=== PATIENT | female | born 1980 | race American Indian/Alaskan Native ===

== ENCOUNTER 2020-11-15 15:49 | Emergency (ER) | payer SELFPAY ==
[2020-11-15] MEDS ORDERED: SODIUM CHLORIDE 0.9% 1000 ML 1,000 ML IV ONE (16:44)
[2020-11-15] MEDS ORDERED: ONDANSETRON 4 MG/2 ML INJ IV ONE (16:44)
[2020-11-15] MEDS ORDERED: KETOROLAC 30 MG/1 ML INJ IV ONE (16:44)
[2020-11-15] MEDS ORDERED: MORPHINE 2 MG/1 ML INJ IV ONE (16:45)
[2020-11-15] MEDS ORDERED: ACETAMINOPHEN 325 MG TAB PO ONE (16:48)
--- NOTE | 2020-11-15 16:48 | Emergency Department Report ---
ED Abdominal Pain HPI - General Chief Complaint: Abdominal Pain Stated Complaint: ABD PAINS Time Seen by Provider: 11/15/20 16:29 Source: patient Mode of arrival: Ambulatory Limitations: No Limitations - History of Present Illness Initial Comments: 40-year-old female with a past medical history of hypertension presents to the ER today with complaints of right lower quadrant pain patient states that the pain started 4 days ago. She describes as a sharp pain that radiates sometimes into the epigastric area. She reports nausea but no vomiting. She states that her bowel movements have been softer than normal and she is been going more frequently but denies any diarrhea, melena or hematochezia. She denies any UTI symptoms or any abnormal vaginal symptoms. She states that her last menstrual cycle was August 31, 2020. She has not taken a home test. She states that when she was a baby had a bowel obstruction which required surgical repair but since then has not had any other abdominal surgeries. MD Complaint: abdominal pain -: days(s) (4) - Related Data Previous Rx's Medication Instructions Recorded Last Taken Type Acetaminophen/Codeine [Tylenol 1 tab PO Q4HR PRN #12 tablet 11/15/20 Unknown Rx /Codeine # 3 tab] Ibuprofen [Motrin] 600 mg PO Q8H PRN #30 tablet 11/15/20 Unknown Rx cephALEXin [Keflex] 500 mg PO Q6HR #40 capsule 11/15/20 Unknown Rx Allergies Allergy/AdvReac Type Severity Reaction Status Date / Time No Known Allergies Allergy Unverified 11/15/20 16:07 ED Review of Systems ROS: Stated complaint: ABD PAINS Other details as noted in HPI Comment: All other systems reviewed and negative Constitutional: denies: chills, fever Respiratory: denies: cough, shortness of breath, wheezing Cardiovascular: denies: chest pain, palpitations Gastrointestinal: abdominal pain, nausea. denies: diarrhea, constipation, hematemesis, melena, hematochezia Genitourinary: abnormal menses. denies: urgency, dysuria, frequency, hematuria, discharge Musculoskeletal: denies: back pain, joint swelling, arthralgia Skin: denies: rash, lesions Neurological: denies: headache, weakness, numbness, paresthesias, confusion Psychiatric: denies: anxiety, depression Hematological/Lymphatic: denies: easy bleeding, easy bruising ED Past Medical Hx - Past Medical History Hx Hypertension: Yes Additional medical history: OVARIAN CYST - Medications Home Medications: Home Medications Medication Instructions Recorded Confirmed Last Taken Type Acetaminophen/Codeine [Tylenol 1 tab PO Q4HR PRN #12 tablet 11/15/20 Unknown Rx /Codeine # 3 tab] Ibuprofen [Motrin] 600 mg PO Q8H PRN #30 tablet 11/15/20 Unknown Rx cephALEXin [Keflex] 500 mg PO Q6HR #40 capsule 11/15/20 Unknown Rx ED Physical Exam - General Limitations: No Limitations General appearance: alert, in no apparent distress, obese - Head Head exam: Present: atraumatic, normocephalic, normal inspection - Respiratory Respiratory exam: Present: normal lung sounds bilaterally. Absent: respiratory distress - Cardiovascular Cardiovascular Exam: Present: regular rate, normal rhythm, normal heart sounds - GI/Abdominal GI/Abdominal exam: Present: soft, tenderness (RLQ). Absent: distended, guarding, rebound - Back Exam Back exam: Present: normal inspection - Neurological Exam Neurological exam: Present: alert, oriented X3, CN II-XII intact, normal gait - Psychiatric Psychiatric exam: Present: normal affect, normal mood - Skin Skin exam: Present: intact ED Course Vital Signs 11/15/20 11/15/20 11/15/20 16:06 17:05 17:08 Temperature 100.3 F H 99 F Pulse Rate 103 H 95 H Respiratory 20 18 18 Rate Blood Pressure 196/114 Blood Pressure 150/107 [Left] O2 Sat by Pulse 97 98 99 Oximetry 11/15/20 18:47 Temperature Pulse Rate 92 H Respiratory 18 Rate Blood Pressure Blood Pressure 169/95 [Left] O2 Sat by Pulse 99 Oximetry ED Medical Decision Making - Lab Data Result diagrams: 11/15/20 16:29 11/15/20 16:29 - Radiology Data Radiology results: report reviewed Patient: ROSITA KESSLER MR#: [id number] : 1980 Acct:[id number] Age/Sex: 40 / F ADM Date: 11/15/20 Loc: ED Attending Dr: Ordering Physician: DARIEN DIETZ Date of Service: 11/15/20 Procedure(s): CT abdomen pelvis w con Accession Number(s): [id number] cc: DARIEN J. J LUIS CT ABDOMEN AND PELVIS WITH CONTRAST INDICATION / CLINICAL INFORMATION: RLQ abd pain. TECHNIQUE: Axial CT images were obtained through the abdomen and pelvis after IV contrast. All CT scans at this location are performed using CT dose reduction for ALARA by means of automated e xposure control. COMPARISON: None available. FINDINGS: LOWER CHEST: No significant abnormality. LIVER: Suspect mild hepatomegaly with mild hepatic steatosis. GALLBLADDER/BILIARY TREE: No significant abnormality PANCREAS: No significant abnormality SPLEEN: No significant abnormality ADRENALS: No significant abnormality KIDNEYS / URETER: No significant abnormality URINARY BLADDER: Bladder is partially decompressed, though grossly unremarkable. REPRODUCTIVE ORGANS: There is asymmetric enlargement of the left ovary with 4.9 cm cystic structure. There is deviation of the uterus to the right. Moderate adjacent zuleyka nd appearing free fluid is present. STOMACH / SMALL BOWEL: Moderately sized periumbilical hernia contains nonobstructed small bowel. No evidence of bowel obstruction or inflammation. COLON: The colon is unremarkable. The appendix is not discretely seen, though there are no secondary signs of appendicitis. LYMPH NODES: No significant adenopathy. VASCULATURE: No significant abnormality. OTHER: No free air, free fluid, or focal fluid collection is identified. There are postoperative changes in the abdomen. SKELETAL SYSTEM: No acute osseous findings. IMPRESSION: 1. Asymmetric enlargement of the left ovary with 4.9 cm cystic structure. There is also moderate adjacent free fluid in the pelvis. Findings may reflect ruptured ovarian cyst, though pelvic ultrasound is recommended for further evaluation, as similar findings may also be seen with ovarian torsion. 2. Moderately sized periumbilical hernia contains nonobstructed small bowel. No bowel obstruction or inflammation. 3. Other chronic, incidental findings as above. Signer Name: Josh Gramajo MD Signed: 11/15/2020 6:31 PM Workstation Name: [id number] - Medical Decision Making 40-year-old female with a past medical history of hypertension presents to the ER today with complaints of right lower quadrant pain patient states that the pain started 4 days ago. She describes as a sharp pain that radiates sometimes into the epigastric area. She reports nausea but no vomiting. She states that her bowel movements have been softer than normal and she is been going more frequently but denies any diarrhea, melena or hematochezia. She denies any UTI symptoms or any abnormal vaginal symptoms. She states that her last menstrual cycle was August 31, 2020. She has not taken a home test. She states that when she was a baby had a bowel obstruction which required surgical repair but since then has not had any other abdominal surgeries. 2101: Patient currently resting comfortably, and is currently talking on her phone. She does not appear to be in any acute distress. Her vital signs improved during stay. She is not toxic or ill-appearing and appears well- hydrated. She is neurologically intact with a normal gait. Labs, CT and ultrasound reviewed. Urinalysis concerning for UTI, remaining labs unremarkable. CT report showed 1. Asymmetric enlargement of the left ovary with 4.9 cm cystic structure. There is also moderate adjacent free fluid in the pelvis. Findings may reflect ruptured ovarian cyst, though pelvic ultrasound is recommended for further evaluation, as similar findings may also be seen with ovarian torsion. 2. Moderately sized periumbilical hernia contains nonobstructed small bowel. No bowel obstruction or inflammation. CT otherwise shows no other acute findings. Pelvic ultrasound showed a 6.1 left ovarian cyst, likely hemorrhagic in nature but no torsion and radiologist recommended 6-week follow-up to ensure resolution. Discussed labs and imaging results with patient. At this time there is no indication for admission or any emergent specialist consult. Discussed treatment plan with patient. Informed her she will need to follow-up with primary care doctor and [facility]. Patient exp ressed understanding of instructions and agree with plan. Patient stable at time of discharge. Critical care attestation.: If time is entered above; I have spent that time in minutes in the direct care of this critically ill patient, excluding procedure time. ED Disposition Clinical Impression: UTI (urinary tract infection), Ovarian cyst, left, Hemorrhagic cyst Disposition: TO HOME OR SELFCARE Is pt being admited?: No Does the pt Need Aspirin: No Condition: Stable Instructions: Urinary Tract Infection, Adult, Ovarian Cyst, Abdominal Pain (ED) Additional Instructions: Take the antibiotic and the pain medication as prescribed. Follow up with OBGYN listed on your discharge instructions. Return to ED if symptoms changes or worsens in anyway. Prescriptions: cephALEXin [Keflex] 500 mg PO Q6HR #40 capsule Ibuprofen [Motrin] 600 mg PO Q8H PRN #30 tablet PRN Reason: Pain Acetaminophen/Codeine [Tylenol /Codeine # 3 tab] 1 tab PO Q4HR PRN #12 tablet PRN Reason: Pain Referrals: PRIMARY CAREMD [Primary Care Provider] - 3-5 Days CHRISTIANO CAMPUZANO MD [Staff Physician] - 3-5 Days [facility] [Provider Group] - 3-5 Days Forms: Work/School Release Form(ED) Time of Disposition: 20:53
[2020-11-15 17:15] LABS: Alanine Aminotransferase 14 units/L (7-56); Albumin 3.7 g/dL (3.9-5); BUN/Creatinine Ratio 18; Basophils % (Auto) 0.3 % (0.0-1.8); Blood Urea Nitrogen 14 mg/dL (7-17); Calcium 8.5 mg/dL (8.4-10.2); Eosinophils % (Auto) 0.4 % (0.0-4.3); Hematocrit 38.4 % (30.3-42.9); Hemoglobin 12.5 gm/dl (10.1-14.3); Hemolysis Index 11; Lymphocytes # (Auto) 0.4 K/mm3 (1.2-5.4); Lymphocytes % (Auto) 9.7 % (13.4-35.0); Mean Corpuscular HGB Conc 33 % (30-34); Mean Corpuscular Volume 85 fl (79-97); Monocytes # (Auto) 0.3 K/mm3 (0.0-0.8); Monocytes % (Auto) 7.8 % (0.0-7.3); Platelet Count 241 K/mm3 (140-440); Red Blood Count 4.54 M/mm3 (3.65-5.03); Red Cell Distribution Width 16.1 % (13.2-15.2)
[2020-11-15] MEDS ORDERED: KETOROLAC 30 MG/1 ML INJ ONE (17:28)
[2020-11-15 18:04] LABS: Bacteria,Urine 4+ /HPF (Negative); Bilirubin,Urine NEG (Negative); Blood,Urine NEG (Negative); Color,Urine Yellow (Yellow); Hyaline Casts,Urine 1 /LPF; Mucus,Urine 2+ /HPF; Protein,Urine <15 mg/dL mg/dL (Negative); Urobilinogen,Urine < 2.0 mg/dL (<2.0)
--- NOTE | 2020-11-15 18:35 | Cat Scan Report ---
CT ABDOMEN AND PELVIS WITH CONTRAST INDICATION / CLINICAL INFORMATION: RLQ abd pain. TECHNIQUE: Axial CT images were obtained through the abdomen and pelvis after IV contrast. All CT sc ans at this location are performed using CT dose reduction for ALARA by means of automated exposure c ontrol. COMPARISON: None available. FINDINGS: LOWER CHEST: No significant abnormality. LIVER: Suspect mild hepatomegaly with mild hepatic steatosis. GALLBLADDER/BILIARY TREE: No significant abnormality PANCREAS: No significant abnormality SPLEEN: No significant abnormality ADRENALS: No significant abnormality KIDNEYS / URETER: No significant abnormality URINARY BLADDER: Bladder is partially decompressed, though grossly unremarkable. REPRODUCTIVE ORGANS: There is asymmetric enlargement of the left ovary with 4.9 cm cystic structure. There is deviation of the uterus to the right. Moderate adjacent bland appearing free fluid is presen t. STOMACH / SMALL BOWEL: Moderately sized periumbilical hernia contains nonobstructed small bowel. No e vidence of bowel obstruction or inflammation. COLON: The colon is unremarkable. The appendix is not discretely seen, though there are no secondary signs of appendicitis. LYMPH NODES: No significant adenopathy. VASCULATURE: No significant abnormality. OTHER: No free air, free fluid, or focal fluid collection is identified. There are postoperative lopez ges in the abdomen. SKELETAL SYSTEM: No acute osseous findings. IMPRESSION: 1. Asymmetric enlargement of the left ovary with 4.9 cm cystic structure. There is also moderate andrei cent free fluid in the pelvis. Findings may reflect ruptured ovarian cyst, though pelvic ultrasound i s recommended for further evaluation, as similar findings may also be seen with ovarian torsion. 2. Moderately sized periumbilical hernia contains nonobstructed small bowel. No bowel obstruction or inflammation. 3. Other chronic, incidental findings as above. Signer Name: Josh Gramajo MD Signed: 11/15/2020 6:31 PM Workstation Name: [id number]
[2020-11-15 18:48] VITALS: BP 169/95
--- NOTE | 2020-11-15 20:49 | Ultrasound Report ---
ULTRASOUND PELVIS INDICATION / CLINICAL INFORMATION: lower abd pain/pelvic pain. TECHNIQUE: Transabdominal. Duplex Color Doppler used: Yes. COMPARISON: None available FINDINGS: Limited study due to body habitus. UTERUS: Uterus measures 10.4 x 4.7 x 5.0 cm. Endometrial stripe measures 0.6 cm, within normal limits . No myometrial mass. RIGHT ADNEXA: Right ovary measures 3.9 x 3.5 x 3.4 cm. No significant ovarian cyst or mass. Normal ve nous flow. LEFT ADNEXA: Left ovary is enlarged, measuring 7.7 x 6.0 x 6.6 cm. There is a 6.1 cm cystic structure in the left ovary without abnormal Doppler flow. Normal venous flow. FREE FLUID: Free fluid seen by CT is not well seen by ultrasound. ADDITIONAL FINDINGS: None. IMPRESSION: 1. 6.1 cm left ovarian cystic structure. This most likely reflects a hemorrhagic cyst. Recommend foll ow-up pelvic ultrasound in 6 weeks to confirm resolution. 2. Otherwise, no acute abnormality. No evidence of ovarian torsion. Signer Name: Josh Gramajo MD Signed: 11/15/2020 8:44 PM Workstation Name: [id number]
== END 2020-11-15 21:00 | disposition home or self-care (01) ==
LOC: ED 15:49
DX: N39.0 Urinary tract infection, site not specified (principal); N83.202 Unspecified ovarian cyst, left side; M27.49 Other cysts of jaw; I10 Essential (primary) hypertension; Z79.899 Other long term (current) drug therapy
CPT/HCPCS: 36415; 74177; 76856; 80053; 81001; 83690; 84703; 85025; 87076; 87086; 87186; 96361; 96374; 96375; 99284; J1885; J2270; J2405; J7030; Q9967

== ENCOUNTER 2021-04-16 00:34 | Emergency (ER) | payer SELFPAY ==
[2021-04-16 04:56] LABS: Hematocrit 31.6 % (30.3-42.9); Hemoglobin 10.1 gm/dl (10.1-14.3); Mean Corpuscular HGB Conc 32 % (30-34); Mean Corpuscular Volume 85 fl (79-97); Platelet Count 318 K/mm3 (140-440); Red Blood Count 3.71 M/mm3 (3.65-5.03)
[2021-04-16 05:14] LABS: Blood Urea Nitrogen 11 mg/dL (7-17); Calcium 9.1 mg/dL (8.4-10.2); Hemolysis Index 6
[2021-04-16 05:19] LABS: BUN/Creatinine Ratio 16
[2021-04-16] MEDS ORDERED: cloNIDine 0.1 MG TAB PO ONE ×2 (06:30→14:09)
[2021-04-16 07:41] LABS: Bilirubin,Urine NEG (Negative); Blood,Urine LG (Negative); Color,Urine Yellow (Yellow); Mucus,Urine FEW /HPF; RBC,Urine > 182.0 /HPF (0.0-6.0); Renal Epithelial Cells,Urine 13 /LPF; Urobilinogen,Urine < 2.0 mg/dL (<2.0)
[2021-04-16 07:42] LABS: Trichomonas,Urine 2+ /HPF
[2021-04-16] MEDS ORDERED: ACETAMINOPHEN 500 MG TAB PO ONE (10:34)
--- NOTE | 2021-04-16 10:34 | Emergency Department Report ---
ED General Adult HPI - General Chief complaint: Vaginal Bleeding Stated complaint: VAGINAL BLEEDING CHEST PAIN SOB HEADACHE Time Seen by Provider: 04/16/21 10:20 Source: patient Mode of arrival: Ambulatory Limitations: No Limitations - History of Present Illness Initial comments: Patient is 40 years old morbidly obese female with history of hypertension. Patient presented to the ER with multiple complaints. Patient stated that she has been having cough, shortness of breath, runny nose and congestion, fever and chills for the last week. Patient stated that she has been taking iryj-ifk-advcjly Robitussin for cough. Patient stated that she was vaccinated in January with [employer]. She also stated that she has been checked every week at her work for COVID-19 which she came back negative last week. Patient also complained of vaginal bleeding for the last 72 days according to the patient report. Patient denied any dizziness. Patient also complaining of substernal chest pain. Patient described her pain as pressure with no radiation. Patient found to have a blood pressure of 222/133. -: days(s) - Related Data Previous Rx's Medication Instructions Recorded Last Taken Type Acetaminophen/Codeine [Tylenol 1 tab PO Q4HR PRN #12 tablet 11/15/20 Unknown Rx /Codeine # 3 tab] Ibuprofen [Motrin] 600 mg PO Q8H PRN #30 tablet 11/15/20 Unknown Rx cephALEXin [Keflex] 500 mg PO Q6HR #40 capsule 11/15/20 Unknown Rx medroxyPROGESTERone ACETATE 10 mg PO QDAY #10 tablet 04/16/21 Unknown Rx [Provera] Allergies Allergy/AdvReac Type Severity Reaction Status Date / Time No Known Allergies Allergy Unverified 11/15/20 16:07 ED Review of Systems ROS: Stated complaint: VAGINAL BLEEDING CHEST PAIN SOB HEADACHE Other details as noted in HPI Comment: All other systems reviewed and negative Constitutional: chills, fever ENT: congestion Respiratory: cough, shortness of breath, SOB with exertion, SOB at rest. denies: orthopnea, wheezing Cardiovascular: denies: chest pain, palpitations Gastrointestinal: denies: abdominal pain, nausea, vomiting, diarrhea, constipation, hematemesis, hematochezia Musculoskeletal: denies: back pain Neurological: denies: headache, weakness ED Past Medical Hx - Past Medical History Previous Medical History?: Yes Hx Hypertension: Yes Additional medical history: OVARIAN CYST - Surgical History Past Surgical History?: Yes Additional Surgical History: Ovarian cyst removal - Social History Smoking Status: Never Smoker Substance Use Type: None - Medications Home Medications: Home Medications Medication Instructions Recorded Confirmed Last Taken Type Acetaminophen/Codeine [Tylenol 1 tab PO Q4HR PRN #12 tablet 11/15/20 Unknown Rx /Codeine # 3 tab] Ibuprofen [Motrin] 600 mg PO Q8H PRN #30 tablet 11/15/20 Unknown Rx cephALEXin [Keflex] 500 mg PO Q6HR #40 capsule 11/15/20 Unknown Rx medroxyPROGESTERone ACETATE 10 mg PO QDAY #10 tablet 04/16/21 Unknown Rx [Provera] ED Physical Exam - General Limitations: No Limitations General appearance: alert, in no apparent distress - Head Head exam: Present: atraumatic, normocephalic, normal inspection - Eye Eye exam: Present: normal appearance - ENT ENT exam: Present: normal exam, normal orophraynx, mucous membranes moist - Neck Neck exam: Present: normal inspection, full ROM. Absent: tenderness, meningismus, lymphadenopathy, thyromegaly - Respiratory Respiratory exam: Present: normal lung sounds bilaterally - Cardiovascular Cardiovascular Exam: Present: regular rate, normal rhythm, normal heart sounds - GI/Abdominal GI/Abdominal exam: Present: soft, normal bowel sounds. Absent: distended, tenderness, guarding, rebound, rigid, organomegaly, mass, bruit, pulsatile mass, hernia - Extremities Exam Extremities exam: Present: normal inspection, full ROM, normal capillary refill. Absent: tenderness, pedal edema, joint swelling - Back Exam Back exam: Present: normal inspection, full ROM. Absent: CVA tenderness (R), CVA tenderness (L) - Neurological Exam Neurological exam: Present: alert, oriented X3, CN II-XII intact, normal gait, reflexes normal. Absent: motor sensory deficit - Psychiatric Psychiatric exam: Present: normal mood - Skin Skin exam: Present: warm, intact, normal color ED Course Vital Signs 04/16/21 04/16/21 04/16/21 03:35 06:30 06:36 Temperature 100.6 F H 99.9 F H Pulse Rate 102 H 108 H 97 H Respiratory 18 18 Rate Blood Pressure 238/121 Blood Pressure 222/133 238/121 [Left] O2 Sat by Pulse 97 97 Oximetry 04/16/21 04/16/2104/16/21 07:48 12:25 14:05 Temperature Pulse Rate 97 H 83 Respiratory 24 Rate Blood Pressure Blood Pressure 197/113 181/113 [Left] O2 Sat by Pulse 99 100 Oximetry 04/16/21 14:13 Temperature Pulse Rate 84 Respiratory Rate Blood Pressure 181/118 Blood Pressure [Left] O2 Sat by Pulse Oximetry ED Medical Decision Making - Lab Data Result diagrams: 04/16/21 04:03 04/16/21 04:03 - EKG Data -: EKG Interpreted by Me EKG shows normal: sinus rhythm Rate: normal - EKG Data Interpretation: no acute changes - Radiology Data Radiology results: report reviewed - Medical Decision Making Patient is 40 years old morbidly obese female with history of hypertension. Patient presented to the ER with multiple complaints. Patient stated that she has been having cough, shortness of breath, runny nose and congestion, fever and chills for the last week. Patient stated that she has been taking ikpy-rjx-vgehobv Robitussin for cough. Patient stated that she was vaccinated in January with [employer]. She also stated that she has been checked every week at her work for COVID-19 which she came back negative last week. Patient also complained of vaginal bleeding for the last 72 days according to the patient report. Patient denied any dizziness. Patient also complaining of substernal chest pain. Patient described her pain as pressure with no radiation. Patient found to have a blood pressure of 222/133. EKG showed no ST elevation. Labs reviewed and is unremarkable including a negative troponin. Patient stated that her chest pain is completely resolved. Blood pressure improved significantly with clonidine. I believe the increase in blood pressure is most likely secondary to oprj-wai-yqwrkbd Robitussin. Chest x-ray is unremarkable. Patient also given prescription for Provera and given referral to my ELECTRICAL ENGINEERING TECHNICIAN for further management. Urine is also showing trichomonas. Patient given Flagyl. Patient also advised to return to the ER if she develop any new symptoms. Critical care attestation.: If time is entered above; I have spent that time in minutes in the direct care of this critically ill patient, excluding procedure time. ED Disposition Clinical Impression: Acute chest pain, Malignant hypertension, Abnormal uterine bleeding, Trichomonas vaginalis (TV) infection Disposition: 01 HOME / SELF CARE / HOMELESS Is pt being admited?: No Condition: Stable Instructions: Abnormal Uterine Bleeding, Nonspecific Chest Pain, Adult, Hypertension, Adult, [id number], Chest Pain (ED), Hypertension (ED) Prescriptions: medroxyPROGESTERone ACETATE [Provera] 10 mg PO QDAY #10 tablet Referrals: [facility] [Provider Group] - 3-5 Days Forms: Work/School Release Form(ED)
--- NOTE | 2021-04-16 13:28 | XRay Report ---
CHEST 1 VIEW INDICATION: chest pain. COMPARISON: None FINDINGS: Support devices: None. Heart: Within normal limits. Lungs/Pleura: No acute air space or interstitial disease. Additional findings: None. IMPRESSION: No acute findings. Signer Name: Dontrell Mccarthy Jr, MD Signed: 04/16/2021 1:24 PM Workstation Name: [id number]
[2021-04-16 13:32] LABS: Alanine Aminotransferase 22 units/L (7-56); Albumin 3.8 g/dL (3.9-5)
[2021-04-16 13:48] LABS: INR 0.98 (0.87-1.13); Partial Thromboplastin Time 28.2 Sec. (24.2-36.6)
[2021-04-16 13:52] LABS: Bilirubin,Direct < 0.2 mg/dL (0-0.2)
[2021-04-16 15:23] VITALS: BP 147/81
--- NOTE | 2021-04-16 17:46 | Electrocardiograph Report ---
[facility] Test Date: 2021-04-16 Test Time: 03:42:42 Pat Name: ROSITA KESSLER Department: Room: Gender: F Legal Department Manager: AKIRA : 1980 Requested By: FLORA HUMPHREYS Order Number: [id number] Reading MD: Redd Salvador Measurements Intervals [place] Rate: 108 P: 61 DE: 145 QRS: 66 QRSD: 79 T: 92 QT: 376 QTc: 504 Interpretive Statements Sinus tachycardia Consider left ventricular hypertrophy Nonspecific T abnormalities, lateral leads No previous ECG available for comparison Electronically Signed On 04-16-2021 17:46:54 EDT by Redd Salvador
== END 2021-04-16 16:31 | disposition home or self-care (01) ==
LOC: ED 00:34
DX: I10 Essential (primary) hypertension (principal); N93.9 Abnormal uterine and vaginal bleeding, unspecified; A59.01 Trichomonal vulvovaginitis; Z79.899 Other long term (current) drug therapy
CPT/HCPCS: 36415; 71045; 80048; 80076; 81001; 84484; 84703; 85027; 85610; 85730; 93005; 99284

== ENCOUNTER 2022-02-23 00:01 | Emergency (ER) | payer SELFPAY ==
[2022-02-23 00:27] VITALS: BP 196/104
--- NOTE | 2022-02-24 10:43 | Electrocardiograph Report ---
[facility] Test Date: 2022-02-23 Test Time: 00:15:06 Pat Name: ROSITA KESSLER Department: Room: Gender: F Occupational Health Nursing Director: AKIRA : 1980 Requested By: ED DOC Order Number: [id number] Reading MD: Redd Salvador Measurements Intervals [place] Rate: 94 P: 48 WV: 133 QRS: 36 QRSD: 80 T: 106 QT: 369 QTc: 461 Interpretive Statements Sinus rhythm Nonspecific T abnormalities, lateral leads Compared to ECG 04/16/2021 03:42:42 No significant change Electronically Signed On 02-24-2022 10:43:26 EDT by Redd Salvador
== END 2022-02-23 23:59 | disposition left against medical advice (07) ==
LOC: ED 00:01
DX: R09.81 Nasal congestion (principal); R07.9 Chest pain, unspecified; Z53.21 Procedure and treatment not carried out due to patient leaving prior to being seen by health care provider
CPT/HCPCS: 93005

== ENCOUNTER 2022-05-12 18:20 | Emergency (ER) | payer BC ==
[2022-05-12 20:52] VITALS: BP 183/102
== END 2022-05-12 23:10 | disposition left against medical advice (07) ==
LOC: ED 18:20
DX: R06.02 Shortness of breath (principal); M79.605 Pain in left leg; Z53.21 Procedure and treatment not carried out due to patient leaving prior to being seen by health care provider